=== PATIENT | female | born 1990 ===

== ENCOUNTER 2017-10-20 19:33 | Emergency (ER) | payer OTHER ==
[2017-10-20 20:21] VITALS: BP 125/84; PULSE 99; RESP 16; TEMP 98.5; O2SAT 100
[2017-10-20] MEDS ORDERED: Lidocaine 5% Patch TD STA (21:58)
[2017-10-20] MEDS ORDERED: Lidocaine 5% Patch TD ONE (22:03)
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
== END 2017-10-20 23:22 | disposition home or self-care (01) ==
LOC: H.ER 19:33
DX: M54.5 Low back pain (principal); V43.02XA Car driver injured in collision with other type car in nontraffic accident, initial encounter; Y92.410 Unspecified street and highway as the place of occurrence of the external cause
CPT/HCPCS: 81025; 96372; 99283; J1885